=== PATIENT | male | born 1945 | race Caucasian/White ===

== ENCOUNTER → 2023-12-28 07:33 | Outpatient (REF) | payer MEDICARE, SELFPAY ==
[2023-12-28 08:52] LABS: % Basophils 0.8 % (0-2); % Eosinophils 13.6 % (0-6); % Immature Granulocytes 0.4 % (0-0.5); % Lymphocytes 19.8 % (20.5-51.1); % Monocytes 7.6 % (1.7-9.3); % Neutrophils 57.8 % (42.2-75.2); Absolute Basophils 0.1 10^3/uL (0-0.2); Absolute Eosinophils 1.1 10^3/uL (0-0.7); Absolute Lymphocytes 1.5 10^3/uL (1.2-3.4); Absolute Monocytes 0.6 10^3/uL (0.1-0.6); Absolute Neutrophils 4.5 10^3/uL (1.4-6.5); Hematocrit 41.8 % (39.0-52.0); Mean Corp Hgb Conc. 33.5 g/dL (33.0-37.0); Mean Corpuscular Hgb 29.7 pg (27.0-31.0); Mean Corpuscular Volume 88.6 fL (80.0-94.0); Mean Platelet Volume 9.6 fL (7.4-10.4); Nucleated Red Blood Cells % 0 % (-); Platelet Count 188 10^3/uL (130-400); Red Blood Cell Count 4.72 10^6/uL (4.70-6.10); White Blood Cell Count 7.7 10^3/uL (4.8-10.8)
[2023-12-28 09:32] LABS: INR 1.91; PT 21.8 Sec (11.4-14.6)
[2023-12-28 09:33] LABS: ALT (SGPT) 38 U/L (0-50); AST (SGOT) 27 U/L (17-59); Albumin 3.9 g/dl (3.5-5.0); Alkaline Phosphatase 80 U/L (38-126); Blood Urea Nitrogen 34 mg/dl (9-20); Calcium 9.2 mg/dl (8.4-10.2); Carbon Dioxide 28 mmol/L (22-30); Chloride 104 mmol/L (98-107); Glucose 175 mg/dl (70-99); Magnesium 1.9 mg/dl (1.6-2.3); Potassium 4.8 mmol/L (3.5-5.1); Sodium 137 mmol/L (135-145); Total Bilirubin 1.3 mg/dl (0.2-1.3); Total Protein 6.8 g/dl (6.3-8.2); eGFR > 60.00
== END ==
LOC: SDSPAT 07:33
PROVIDERS: ATTENDING PHYSICIAN Internal Medicine Cardiovascular Disease; FAMILY PHYSICIAN Internal Medicine; OTHER PHYSICIAN Internal Medicine Interventional Cardiology
DX: Z01.818 Encounter for other preprocedural examination (principal); I47.10 Supraventricular tachycardia, unspecified
CPT/HCPCS: 36415; 80053; 83735; 85025; 85610; 86850; 86900; 86901; 93005

== ENCOUNTER → 2024-02-08 09:13 | Outpatient (REF) | payer MEDICARE, SELFPAY ==
[2024-02-08 10:31] LABS: % Basophils 0.8 % (0-2); % Eosinophils 11.7 % (0-6); % Immature Granulocytes 0.1 % (0-0.5); % Lymphocytes 22.2 % (20.5-51.1); % Monocytes 8.4 % (1.7-9.3); % Neutrophils 56.8 % (42.2-75.2); Absolute Basophils 0.1 10^3/uL (0-0.2); Absolute Eosinophils 0.9 10^3/uL (0-0.7); Absolute Lymphocytes 1.7 10^3/uL (1.2-3.4); Absolute Monocytes 0.7 10^3/uL (0.1-0.6); Absolute Neutrophils 4.4 10^3/uL (1.4-6.5); Hematocrit 41.2 % (39.0-52.0); Hemoglobin 13.6 g/dL (13.0-18.0); Mean Corpuscular Hgb 30.2 pg (27.0-31.0); Mean Corpuscular Volume 91.4 fL (80.0-94.0); Mean Platelet Volume 9.5 fL (7.4-10.4); Nucleated Red Blood Cells % 0 % (-); Platelet Count 201 10^3/uL (130-400); Red Blood Cell Count 4.51 10^6/uL (4.70-6.10); Red Cell Dist. Width 14.2 % (11.5-14.5); White Blood Cell Count 7.8 10^3/uL (4.8-10.8)
[2024-02-08 10:32] LABS: INR 1.29
[2024-02-08 10:33] LABS: ALT (SGPT) 31 U/L (0-50); AST (SGOT) 26 U/L (17-59); Albumin 4.3 g/dl (3.5-5.0); Alkaline Phosphatase 74 U/L (38-126); Blood Urea Nitrogen 28 mg/dl (9-20); Calcium 9.8 mg/dl (8.4-10.2); Carbon Dioxide 29 mmol/L (22-30); Chloride 100 mmol/L (98-107); Glucose 124 mg/dl (70-99); Sodium 137 mmol/L (135-145); Total Bilirubin 1.1 mg/dl (0.2-1.3); eGFR > 60.00
[2024-02-08 10:50] LABS: Potassium 4.7 mmol/L (3.5-5.1)
== END ==
LOC: SDSPAT 09:13
PROVIDERS: ATTENDING PHYSICIAN Internal Medicine Cardiovascular Disease; FAMILY PHYSICIAN Internal Medicine; OTHER PHYSICIAN Internal Medicine Interventional Cardiology
DX: Z01.818 Encounter for other preprocedural examination (principal); I47.10 Supraventricular tachycardia, unspecified
CPT/HCPCS: 36415; 80053; 83735; 85025; 85610; 86850; 86900; 86901; 93005

== ENCOUNTER → 2024-02-19 06:43 | Day surgery (SDC) | payer MEDICARE, SELFPAY ==
[2023-12-28 08:36] VITALS: BMI 34.4
[2024-02-19 07:40] VITALS: BMI 34.6
== END ==
LOC: CATH 06:43
PROVIDERS: ATTENDING PHYSICIAN Internal Medicine Cardiovascular Disease; FAMILY PHYSICIAN Internal Medicine; OTHER PHYSICIAN Internal Medicine Interventional Cardiology
DX: I47.10 Supraventricular tachycardia, unspecified (principal); I48.0 Paroxysmal atrial fibrillation; I70.0 Atherosclerosis of aorta; I47.20 Ventricular tachycardia, unspecified; I50.22 Chronic systolic (congestive) heart failure; I08.1 Rheumatic disorders of both mitral and tricuspid valves; I25.10 Atherosclerotic heart disease of native coronary artery without angina pectoris; I11.0 Hypertensive heart disease with heart failure; Z95.810 Presence of automatic (implantable) cardiac defibrillator; Z86.73 Personal history of transient ischemic attack (TIA), and cerebral infarction without residual deficits; E11.51 Type 2 diabetes mellitus with diabetic peripheral angiopathy without gangrene; E66.9 Obesity, unspecified; Z68.34 Body mass index [BMI] 34.0-34.9, adult; E78.5 Hyperlipidemia, unspecified; Z79.01 Long term (current) use of anticoagulants; Z95.5 Presence of coronary angioplasty implant and graft; Z79.82 Long term (current) use of aspirin; Z79.4 Long term (current) use of insulin; Z79.899 Other long term (current) drug therapy; I42.9 Cardiomyopathy, unspecified
CPT/HCPCS: 93312; 93320; 93325

== ENCOUNTER 2024-02-22 08:33 | Day surgery (SDC) | payer MEDICARE, SELFPAY ==
[2023-12-28 08:38] VITALS: BMI 34.4
--- NOTE | 2023-12-28 12:09 | W.SUR.PREOP ---
Pre-Operative Surgical Note
-
The patient was initially scheduled for a JUDIE on 01/07 w/ Dr Oleary and VT ablation w/ Dr Lin on 01/13.
Unfortunately, his procedure will have to be cancelled due to a TIA on 12/22/23.
He was evaluated at [facility] and was switched from Warfarin to Eliquis.
Per Dr. Lin, he can be rescheduled in mid-late January.
Discussed with patient through telephone call 12/28.
Farhan from scheduling also made aware through TT.
[2024-02-22] VITALS (16 sets, daily range): BP systolic 89–144; BP diastolic 45–82; BMI 33.9
[2024-02-22 09:15] LABS: Glucose - Point of Care 173 mg/dl (70-99)
[2024-02-22 11:13] LABS: ACT-LR - POC 318 Seconds (116-155)
[2024-02-22 11:39] LABS: ACT-LR - POC 281 Seconds (116-155)
[2024-02-22 11:56] LABS: ACT-LR - POC 297 Seconds (116-155)
[2024-02-22 12:15] LABS: ACT-LR - POC 144 Seconds (116-155)
--- NOTE | 2024-02-22 12:33 | ITS.CL.ABL ---
Telecommunicator Supervisor - Ablation
Ablation
Procedure Report:
ELECTROPHYSIOLOGY ABLATION REPORT
Date of Procedure: 02/22/2024
Referring: Dr. ALPESH Lee
INDICATION: Ischemic cardiomyopathy with prior anteroapical scar ejection fraction 40 to 45% with 10 to 11% monomorphic PVCs which are QR in lead V1 left inferior morphology suggesting aortic cusp�aorto mitral continuity.
HISTORY: As above. There are also sparse multifocal superiorly directed PVCs. History of dual-chamber ICD implantation
PROCEDURE:
After informed consent patient safe timeout the patient was seen by the anesthesiology service. The dual-chamber ICD was interrogated and reprogrammed with device therapies off for the procedure and then device therapies were reprogrammed on at the
end of procedure. The patient was left with a VT zone 175, VF zone of 220, and DDD 60 to 115 bpm without any changes in program at the end of the procedure. The patient had a predominant PVC which was right bundle left inferior positive throughout
the precordium with a QR in lead V1 which we will refer to his PVC 1. This was targeted for ablation. Under ultrasound guidance a 9 [place] venous sheath was added and a 5 [place] right femoral arterial sheath was added under ultrasound guidance.
Right femoral arterial sheath was upgraded to a 9 [place] braid 64 cm to the descending aorta. Intracardiac ultrasound was brought to the right ventricle demonstrating ejection fraction 45% with anteroapical hypokinesis and thinning at the apex from
prior infarct. The mid to basal ventricle move normally with normal thickness. Patient's clinical PVC was electrically distinct from the anteroapical scar. 3D mapping with [employer] [place] mapping system was utilized. Left ventricular pacing and recording
was performed with a grid catheter and the 4 mm tach catheter radiofrequency irrigated ablation catheter.
Sheaths were placed and IV heparin bolus followed by continuous infusion to maintain ACT at 250-350 seconds. We first performed a greater than 1000 point electroanatomic map of the left ventricle demonstrating small patchy areas of anterior
apical scar but relatively overall voltage was towards normal amplitude. Ventricular pacing could not induce any sustained tachycardia from the anteroapical scar. As such we then performed activation mapping with both the multipolar catheter and
the 4 mm ablation catheter targeting the patient's clinical PVC. Approximate 0.5 cm below the right left commissure and the aorto mitral continuity activation mapping demonstrated 35 ms pre-QRS with a QS on the unipolar recording and 94 to 95%
match with pacing in this region. We then performed ablation at 10 to 20 g force for 15 to 20-second lesions for a total of 4 minutes of radiofrequency energy in this region abolishing the patient's clinical PVC. There was sparse superiorly
directed PVCs with both right and left bundle morphology and as the clinical PVC did not return for a greater than 20-minute waiting period we completed the procedure and catheters were withdrawn from the right and left ventricles. There was no
change in small pericardial fusion which was seen preablation and ejection fraction was similar at 40 to 45%. There is no aortic regurgitation noted pre and post procedure.
At the end of RF energy delivery, the targeted VT could no longer be induced. This is in marked contrast to the pre-ablation findings. Protamine was given at 40 mg and a [id number] stitch was placed in the left femoral vein. Manual
pressure was utilized for the right femoral artery and the patient will be observed overnight in the IVU at the vascular access site. The patient's ICD therapies were turned back on.
COMPLICATIONS: None
SUMMARY: Status post ablation of the clinical aorta mitral continuity PVC with noninducibility from the patient's anteroapical scar. Characteristics of the anteroapical scar demonstrated patchy voltage abnormality with a paucity of late and
fractionated signals and as the patient was noninducible for sustained arrhythmias no ablation was performed in the anteroapical scar.
RECOMMENDATIONS:
1. Out of bed 4 hours and resume apixaban this evening
2. Consider discharge on February 23, 2024 and follow the patient's clinical PVC burden
Copy to: Dr. ALPESH Lee
--- NOTE | 2024-02-22 13:00 | PTCARENOTE ---
report received from cardiac catheterization technician, pt admitted to room 2257. pt drowsy, arouses easily to voice, orientedx3. SR with pvcs and occasional a pacing on telemetry heart rate in 60s. Pulses palpable. trace edema. pt on 2L nasal cannula, sat 94-97%. lung
sounds clear. active bowel sounds. due to void post procedure. Right femoral artery access site with fem stop in place. Left femoral vein access site with figure eight dressing CDI. bilateral dp pulses easily palpable. pt educated on activity
restrictions and bedrest for 4 hours. see worklist for full nursing assessment and interventions.
[2024-02-22 14:27] LABS: Glucose - Point of Care 142 mg/dl (70-99)
--- NOTE | 2024-02-22 16:14 | CM ---
Reviewed chart. Met with and Mrs. Aguirre to review discharge plans. He states prior to admission he resides with his spouse in a spilt-level home with two steps to enter the home. He states he has steps to get to bedroom/full bathroom. He
states his powder room is on the lower level. He states prior to admission he was independent with ambulation and adls. He states he does not have DME in the home. He states he has a prescription plan and uses [facility]. The discharge plan is
to return home with his spouse when medically stable.
[2024-02-22 17:14] LABS: Glucose - Point of Care 267 mg/dl (70-99)
[2024-02-22] MEDS: NOVOLOG FLEXPEN-MODERATE RESISTANCE SC (17:17)
[2024-02-22] MEDS: LIPITOR 80 MG PO (17:18)
[2024-02-22] MEDS: NOVOLOG FLEXPEN 12 UNITS SC (17:18)
[2024-02-22] MEDS: LOW STRENGTH ASPIRIN 81 MG PO (17:18)
[2024-02-22] MEDS: ZETIA 10 MG PO (17:18)
[2024-02-22] MEDS: LASIX 20 MG PO (17:18)
[2024-02-22] MEDS: COREG 25 MG PO (20:24)
[2024-02-22] MEDS: ELIQUIS 5 MG PO (20:25)
[2024-02-22] MEDS: ENTRESTO 49 MG/51 MG 1 TAB PO (20:26)
[2024-02-22 22:03] LABS: Glucose - Point of Care 313 mg/dl (70-99)
[2024-02-22] MEDS: XALATAN OPHTHALMIC SOLUTION 1 DROP BOTH EYES (22:13)
[2024-02-22] MEDS: LANTUS 0.239999999999999991 UNITS SC (22:13)
--- NOTE | 2024-02-23 01:03 | PTCARENOTE ---
Pt. AAOx3, VSS, NSR with A-pacing and PVC's on the monitor. Bilateral groin ablation site dressings CDI with no S&S hematoma, pedal pulses palpable. Pt. has no complaints, very pleasant, OOB with steady gait. Currently sleeping.
[2024-02-23 03:27] VITALS: BP 129/71
[2024-02-23 04:06] VITALS: BMI 33.5
[2024-02-23 04:30] LABS: Hematocrit 35.7 % (39.0-52.0); Hemoglobin 12.3 g/dL (13.0-18.0); Mean Corp Hgb Conc. 34.5 g/dL (33.0-37.0); Mean Corpuscular Hgb 30.3 pg (27.0-31.0); Mean Corpuscular Volume 87.9 fL (80.0-94.0); Mean Platelet Volume 9.9 fL (7.4-10.4); Platelet Count 186 10^3/uL (130-400); Red Blood Cell Count 4.06 10^6/uL (4.70-6.10); Red Cell Dist. Width 13.7 % (11.5-14.5)
[2024-02-23 04:48] LABS: Blood Urea Nitrogen 34 mg/dl (9-20); Carbon Dioxide 23 mmol/L (22-30); Chloride 106 mmol/L (98-107); Estimated Creatinine Clearance 66 ml/min; Glucose 275 mg/dl (70-99); Magnesium 1.9 mg/dl (1.6-2.3); Potassium 4.7 mmol/L (3.5-5.1); Sodium 133 mmol/L (135-145); eGFR > 60.00
[2024-02-23 06:49] VITALS: BP 124/70
[2024-02-23 06:53] LABS: Glucose - Point of Care 241 mg/dl (70-99)
[2024-02-23] MEDS: COREG 25 MG PO (08:19)
[2024-02-23] MEDS: ENTRESTO 49 MG/51 MG 1 TAB PO (08:19)
[2024-02-23] MEDS: ELIQUIS 5 MG PO (08:19)
[2024-02-23] MEDS: NOVOLOG FLEXPEN-MODERATE RESISTANCE 3 UNITS SC (08:20)
[2024-02-23] MEDS: NOVOLOG FLEXPEN 10 UNITS SC (08:21)
[2024-02-23 08:32] LABS: Glycohemoglobin (HgbA1c) 7.9 % (4.0-5.6)
--- NOTE | 2024-02-23 08:38 | W.PN.CARDCBS ---
Addendum entered and electronically signed by Lennox Lin MD 02/23/24 10:56:
Patient seen and examined
Agree with BASEBALL HAND SEWER note and assessment
Agree with BASEBALL HAND SEWER plan
Exam:
Per BASEBALL HAND SEWER note
Cor regular
Telemetry atrial pacing with occasional periods of PVCs
Lungs clear
Remainder of exam per SUPERVISOR KENNEL note
PCP: Gonzalo Mallory MD
CDY: Denisse Lee MD
78 y/o, PMH sig for ICM, anteroapical scar, chronic systolic HFrEF 30-35% w/ICD implant 04/2023. Recent device interrogation revealed 10-11% burden monomorphic PVCs, NSVT, PVCs, PAT.
Presented to EP lab, s/p PVC ablation.
IMPRESSION:
NSVT/PVCs
s/p PVC ablation, 02/22/24
Chronic systolic HFrEF 30-35%
Ischemic Cardiomyopathy
DC ICD implant (04/2023)
CAD, s/p PCI x2 (2001, 2009)
PAF, chronic eliquis
CVA x2 w/residual left sided weakness
HTN
HLD
DM
Obesity
PLAN:
Tele- SR alt w/APacing, RBBB, PVCs and bigemeny noted
Bilat groin sites stable
oob ambulating
Restarted eliquis last evening for [id number]
Continue GDMT with carvedilol, entresto, lasix
HgbA1C 7.9%- to followup with PCP re: DM management, insulin adjustment
Followup with Dr. Lee in 4-6 weeks
home today
Original Note:
Today's Communication / Plan
-
home today
Impression / Plan
-
PCP: Gonzalo Mallory MD
CDY: Denisse Lee MD
78 y/o, PMH sig for ICM, anteroapical scar, chronic systolic HFrEF 30-35% w/ICD implant 04/2023. Recent device interrogation revealed 10-11% burden monomorphic PVCs, NSVT, PVCs, PAT.
Presented to EP lab, s/p PVC ablation.
IMPRESSION:
NSVT/PVCs
s/p PVC ablation, 02/22/24
Chronic systolic HFrEF 30-35%
Ischemic Cardiomyopathy
DC ICD implant (04/2023)
CAD, s/p PCI x2 (2001, 2009)
PAF, chronic eliquis
CVA x2 w/residual left sided weakness
HTN
HLD
DM
Obesity
PLAN:
Tele- SR alt w/APacing, RBBB, PVCs and bigemeny noted
Bilat groin sites stable
oob ambulating
Restarted eliquis last evening for [id number]
Continue GDMT with carvedilol, entresto, lasix
HgbA1C 7.9%- to followup with PCP re: DM management, insulin adjustment
Followup with Dr. Lee in 4-6 weeks
home today
Progress Note - Pipe Chipper
Subjective
Date of Service: February 23, 2024
Denies cp/palps/dyspnea
oob ambulating
groin sites without pain
Objective
Labs:
02/23/24 03:45
02/23/24 03:45
Labs
Hgb 12.3 g/dL (13.0-18.0) L 02/23/24 03:45
Hct 35.7 % (39.0-52.0) L 02/23/24 03:45
Plt Count 186 10^3/uL (130-400) 02/23/24 03:45
PT Cancelled 01/14/24 06:00
INR Cancelled 01/14/24 06:00
Sodium 133 mmol/L (135-145) L 02/23/24 03:45
Potassium 4.7 mmol/L (3.5-5.1) 02/23/24 03:45
BUN 34 mg/dl (9-20) H 02/23/24 03:45
Creatinine 1.1 mg/dL (0.7-1.3) 02/23/24 03:45
Glucose 275 mg/dl (70-99) H 02/23/24 03:45
Vital Signs and I&O:
Vital Signs
Temp Pulse Resp BP Pulse Ox
97.9 F 76 16 124/70 100
02/23/24 06:49 02/23/24 06:49 02/23/24 06:49 02/23/24 06:49 02/23/24 06:49
Vital Signs
Temp Pulse Resp BP Pulse Ox
97.9 F 76 16 124/70 100
02/23/24 06:49 02/23/24 06:49 02/23/24 06:49 02/23/24 06:49 02/23/24 06:49
Intake & Output
02/21/24 02/22/24 02/23/24 02/24/24
06:59 06:59 06:59 06:59
Intake Total 720 / 720
Output Total 300 / 300
Balance 420 / 420
Physical Exam
Physical Exam
AAOx3, MAEE 5/5
RRR S1 S2 no murmurs
CTA bilat, non labored
soft abd, + bs
bilat groin sites without ht/bleeding, non tender
bilat extremities w/palpable distal pulses, no edema
--- NOTE | 2024-02-23 08:50 | PTCARENOTE ---
Received patient this morning sitting oob in the chair eating his breakfast. States he feels well, denies any pain or discomfort. Bilateral groin dressings are dry and intact. Patient seen by cardiology and is ok for discharge today.
--- NOTE | 2024-02-23 10:49 | W.DS.TRANS ---
DC Summary - Director Of Orthopedics
-
Discharge Instructions:
Sleep Apnea Risk High
Discharge Diagnosis/Procedures PVC/NSVT, s/p ablation
Diet Low Cholesterol
Driving Restrictions No driving for 24 hours
Instructions:
Stand-Alone Forms: DC Instructions- Cath/EP Lab
Changes to Home Medications: No
Discharge Medications:
DC Medications w/original date entered in [facility]
ascorbic acid (vitamin C) 500 mg tablet (Vitamin C) 500 mg PO QPM Supplement 04/02/23
aspirin 81 mg chewable tablet 81 mg PO QPM Blood Clot Prevention/Tx 04/02/23
atorvastatin 80 mg tablet 80 mg PO QPM High Cholesterol 04/02/23
carvedilol 25 mg tablet 25 mg PO BID Heart Disease/Condition 04/02/23
ezetimibe 10 mg tablet 10 mg PO QPM High Cholesterol 04/02/23
furosemide 20 mg tablet (Lasix) 20 mg PO QPM Fluid Retention/Swelling 04/02/23
insulin aspart U-100 100 unit/mL (3 mL) subcutaneous pen (Novolog FlexPen U-100 Insulin aspart) 10 unit SC DAILY@0800,1200 Diabetes 04/02/23
insulin aspart U-100 100 unit/mL (3 mL) subcutaneous pen (Novolog FlexPen U-100 Insulin aspart) 12 unit SC QPM Diabetes 04/02/23
insulin glargine 100 unit/mL (3 mL) subcutaneous pen (Lantus Solostar U-100 Insulin) 24 unit SC HS Diabetes 04/02/23
latanoprost 0.005 % eye drops 1 drp BOTH EYES HS Eye Condition 04/02/23
sacubitril 49 mg-valsartan 51 mg tablet (Entresto) 1 tab PO BID Heart Failure 04/02/23
cholecalciferol (vitamin D3) 50 mcg (2,000 unit) tablet (Vitamin D3) 50 mcg PO QPM Supplement 04/09/23
apixaban 5 mg tablet (Eliquis) 5 mg PO BID Blood Clot Prevention/Tx 12/28/23
Home Medication Changes
Pending Results: No
--- NOTE | 2024-02-23 10:49 | PTCARENOTE ---
Reviewed discharge instructions with the patient and he states his understanding. Patient discharged home with his , aware of follow up appointments to schedule including discussing with his primary better diabetes management.
== END 2024-02-23 10:20 | disposition home or self-care (01) ==
LOC: CATH 08:33
PROVIDERS: Nurse Practitioner; ATTENDING PHYSICIAN Internal Medicine Cardiovascular Disease; FAMILY PHYSICIAN Internal Medicine; OTHER PHYSICIAN Internal Medicine Interventional Cardiology
DX: I47.20 Ventricular tachycardia, unspecified (principal); I11.0 Hypertensive heart disease with heart failure; I50.22 Chronic systolic (congestive) heart failure; I25.10 Atherosclerotic heart disease of native coronary artery without angina pectoris; Z95.5 Presence of coronary angioplasty implant and graft; I25.5 Ischemic cardiomyopathy; I45.10 Unspecified right bundle-branch block; I48.0 Paroxysmal atrial fibrillation; I69.354 Hemiplegia and hemiparesis following cerebral infarction affecting left non-dominant side; E11.51 Type 2 diabetes mellitus with diabetic peripheral angiopathy without gangrene; I47.19 Other supraventricular tachycardia; E66.9 Obesity, unspecified; Z68.34 Body mass index [BMI] 34.0-34.9, adult; E78.5 Hyperlipidemia, unspecified; Z79.82 Long term (current) use of aspirin; Z79.01 Long term (current) use of anticoagulants; Z79.899 Other long term (current) drug therapy; Z79.4 Long term (current) use of insulin
CPT/HCPCS: 93662; C1732; C1894; C1769; C2630; C1892; C1759; 76937; 80048; 82962; 83036; 83735; 85027; 85347; 86850; 86900; 86901; 93005; 93654